=== PATIENT | male | born 1990 | race Caucasian/White ===

== ENCOUNTER 2017-12-03 18:29 | Emergency (ER) | payer OTHER ==
[2017-12-03 19:13] VITALS: BP 139/70
--- NOTE | 2017-12-03 19:27 | UC ---
Complaint Male HPI - HPI Summary HPI Summary: ONSET OF TESTICULAR PAIN LAST NIGHT. SEEMED MORE RIGHT SIDED INITIALLY BUT TODAY IS LEFT SIDED. DENIES ANY CHANGE IN TESTICULAR ORIENTATION OR URINARY SX. NO FEVER OR NAUSEA. HAD EPIDIDYMITIS ABOUT 2 YRS AGO TX WITH ABX. PT DENIES ANY UNPROTECTED SEX AND STATES NO CHANCE OF STD. FEELS BETTER AFTER NSAIDS.OF NOTE PT HAD UNDESCENDED TESTICLE AND ORCHIOPEXY AROUND AGE 2. NOT SURE WHICH SIDE. - History of Current Complaint Stated Complaint: MALE PAIN Time Seen by Provider: 12/03/17 18:48 Hx Obtained From: Patient Onset/Duration: Gradual Onset, Lasting Hours, Still Present Timing: Constant Severity Initially: Moderate Severity Currently: Moderate Pain Intensity: 4 Pain Scale Used: 0-10 Numeric Location: Testicle Character: Sharp Aggravating Factor(s): Palpation Associated Signs And Symptoms: Negative: Diaphoresis, Back Pain, Fever, Hematuria, Dysuria, Nausea, Penile Discharge - Allergies/Home Medications Allergies/Adverse Reactions: Allergies Allergy/AdvReac Type Severity Reaction Status Date / Time No Known Allergies Allergy Verified 12/03/17 19:13 Home Medications: Home Medications NK [No Home Medications Reported] 12/03/17 [History Confirmed 12/03/17] PMH/Surg Hx/FS Hx/Imm Hx Other GI/ History: UNDESCENDED TESTICLE S/P ORCHIOPEXY AROUND AGE 2 - Surgical History Surgical History: Yes Surgery Procedure, Year, and Place: Testicular - Family History Known Family History: Negative: Hypertension - Social History Alcohol Use: Occasionally Substance Use Type: None Smoking Status (MU): Never Smoked Tobacco Review of Systems Constitutional: Negative Skin: Negative Respiratory: Negative Cardiovascular: Negative Gastrointestinal: Negative Genitourinary: Other - LEFT TESTICULAR PAIN All Other Systems Reviewed And Are Negative: Yes Physical Exam Triage Information Reviewed: Yes Appearance: Well-Appearing, No Pain Distress, Well-Nourished Vital Signs: Initial Vital Signs Temp 99.1 F 12/03/17 19:08 Pulse 79 12/03/17 19:08 Resp 20 12/03/17 19:08 BP 139/70 12/03/17 19:08 Pulse Ox 99 12/03/17 19:08 Vital Signs Reviewed: Yes Eyes: Positive: Conjunctiva Clear ENT: Positive: Hearing grossly normal Neck: Positive: Supple Respiratory: Positive: No respiratory distress, No accessory muscle use Cardiovascular: Positive: Pulses Normal Abdomen Description: Positive: Soft Musculoskeletal: Positive: No Edema Neurological: Positive: Alert Psychological: Positive: Age Appropriate Behavior Skin: Negative: rashes UC Physical Exam Vital Signs On Initial Exam: Initial Vitals Temp Pulse Resp BP Pulse Ox 99.1 F 79 20 139/70 99 12/03/17 19:08 12/03/17 19:08 12/03/17 19:08 12/03/17 19:08 12/03/17 19:08 - Genitalia Exam Male Genitalia: Circumcised, Other - LEFT TESTICLE TENDER DIFFUSELY. APPEARS HIGH RIDING AND TRANSVERSE. Complaint Male Course/Dx - Course Course Of Treatment: ON EXAM LEFT TESTICLE SEEMS HIGH RIDING AND TRANSVERSE WITH TENDERNESS. PT WITH H/O ORCHIOPEXY DUE TO UNDESCENDED TESTIS. WILL SEND TO ER FOR FURTHER EVAL. NEED TO R/O TORSION. PT DEFERRED URINE SAMPLE SINCE HE IS GOING TO ER. [place]. PCP IN [place]. - Differential Dx/Diagnosis Provider Diagnoses: LEFT TESTICULAR PAIN Discharge - Discharge Plan Condition: Stable Disposition: OTHER Discharge Disposition Comment: TO [facility] [place] ED BY PRIVATE CAR Patient Education Materials: Testicle Pain (ED) Referrals: No Primary Care Phys,NOPCP [Primary Care Provider] - Additional Instructions: GO DIRECTLY TO THE [facility] [place] ED FROM HERE FOR FURTHER EVALUATION.
== END 2017-12-03 19:16 ==
LOC: UCEAST 18:29
DX: N50.812 Left testicular pain (principal)
CPT/HCPCS: 99202; G0463

== ENCOUNTER 2017-12-03 19:35 | Emergency (ER) | payer OTHER ==
--- NOTE | 2017-12-03 21:13 | RAD ---
INDICATION: Right testicular pain. COMPARISON: There are no prior studies available for comparison. TECHNIQUE: Multiple real-time images of the testicles were obtained including color Doppler images and Doppler tracings. FINDINGS: The testicles are normal in size, shape and echogenicity. The right testicle measured 5.6 x 3.2 x 3.4 cm and the left testicle measured 4.7 x 2.7 x 3.2 cm. No intratesticular mass is seen. There is vascular flow within both testicles. The epididymides are are are normal in size. There is a small 4 x 2 mm right epididymal head cyst. IMPRESSION: 1. NO EVIDENCE FOR TORSION OR EPIDIDYMITIS. 2. SMALL RIGHT EPIDIDYMAL CYST.
[2017-12-03 22:51] VITALS: BP 133/92
[2017-12-03 22:57] LABS: Urine Appearance Clear; Urine Blood Negative (Negative); Urine Color Yellow; Urine Ketones 2+ (Negative); Urine Protein Negative (Negative); Urine Specific Gravity 1.025 (1.010-1.030); Urine Urobilinogen Negative (Negative)
--- NOTE | 2017-12-04 03:57 | ED ---
Jacqui Ramirez Abhishek, scribed for Preston Sam MD on 12/03/17 at 2232 . Complex/Multi-Sys Presentation - HPI Summary HPI Summary: This patient is a 27 year old M presenting to [facility] with a chief complaint of testicular pain since 12/02/17 at 2100. The pain is described as on the left side. The patient rates the pain 5/10 in severity. Symptoms aggravated by sitting. Symptoms alleviated by Aleve. Patient denies urinary pain and hematuria. Pt states he has had abd pain (cyst) in 4 weeks. Pertinent PMHx includes testicular surgery in the left side. - History Of Current Complaint Chief Complaint: EDUrogenitalProblems Time Seen by Provider: 12/03/17 22:22 Hx Obtained From: Patient Onset/Duration: Gradual Onset, Lasting Days - last night 2099 Timing: Constant Severity Currently: None Severity Initially: Moderate Aggravating Factor(s): sitting Alleviating Factor(s): Aleve (medication) Associated Signs And Symptoms: Positive: Other - Left sided testicular pain. Negative hematuria, abd pain and urinary pain - Allergies/Home Medications Allergies/Adverse Reactions: Allergies Allergy/AdvReac Type Severity Reaction Status Date / Time No Known Allergies Allergy Verified 12/03/17 19:47 PMH/Surg Hx/FS Hx/Imm Hx Endocrine/Hematology History: Denies: Hx Diabetes, Hx Thyroid Disease Cardiovascular History: Denies: Hx Hypertension Respiratory History: Denies: Hx Asthma, Hx Chronic Obstructive Pulmonary Disease (COPD) GI History: Denies: Hx Ulcer - Surgical History Surgery Procedure, Year, and Place: Testicular Infectious Disease History: No Infectious Disease History: Denies: Hx Clostridium Difficile, Hx Hepatitis, Hx Human Immunodeficiency Virus (HIV), Hx of Known/Suspected MRSA, Hx Shingles, Hx Tuberculosis, Hx Known/ Suspected VRE, Hx Known/Suspected VRSA, History Other Infectious Disease, Traveled Outside the [place] in Last 30 Days - Family History Known Family History: Negative: Cardiac Disease, Hypertension, Diabetes - Social History Alcohol Use: Occasionally Substance Use Type: Reports: None Smoking Status (MU): Never Smoked Tobacco Review of Systems Constitutional: Negative Eyes: Negative ENT: Negative Cardiovascular: Negative Respiratory: Negative Negative: Abdominal Pain Genitourinary: Other - Left sided testicular pain Negative: hematuria, pain Skin: Negative Neurological: Negative Psychological: Normal All Other Systems Reviewed And Are Negative: Yes Physical Exam - Summary Physical Exam Summary: General: well-appearing, no pain distress Skin: warm, color reflects adequate perfusion, dry Head: normal Eyes: EOMI, JUSTINA ENT: normal Neck: supple, nontender Respiratory: CTA, breath sounds present Cardiovascular: RRR Abdomen: soft, nontender Bowel: present Musculoskeletal: Mildly tender Left cremasteric muscle Neurological: normal, sensory/motor intact, A&O x3 Psychological: affect/mood appropriate Triage Information Reviewed: Yes Vital Signs On Initial Exam: Initial Vitals Temp Pulse Resp BP Pulse Ox 99.5 F 92 18 141/82 98 12/03/17 19:43 12/03/17 19:43 12/03/17 19:43 12/03/17 19:43 12/03/17 19:43 Vital Signs Reviewed: Yes Diagnostics - Vital Signs Vital Signs Temp Pulse Resp BP Pulse Ox 12/03/17 19:43 99.5 F 92 18 141/82 98 - Laboratory Lab Results: Lab Results 12/03/17 Range/Units 22:41 Urine Color Yellow Urine Appearance Clear Urine pH 5.0 (5-9) Ur Specific [place] 1.025 (1.010-1.030) Urine Protein Negative (Negative) Urine Ketones 2+ H (Negative) Urine Blood Negative (Negative) Urine Nitrate Negative (Negative) Urine Bilirubin Negative (Negative) Urine Urobilinogen Negative (Negative) Ur Leukocyte Esterase Negative (Negative) Urine Glucose Negative (Negative) Lab Statement: Any lab studies that have been ordered have been reviewed, and results considered in the medical decision making process. - Ultrasound No standard instances Ultrasound Interpretation Completed By: Radiologist - Testicular US reveals 1. NO EVIDENCE FOR TORSION OR EPIDIDYMITIS. 2. SMALL RIGHT EPIDIDYMAL CYST. ED physician has reviewed this radiology report and agrees. Complex Multi-Symp Course/Dx Course Of Treatment: LEFT CREMASTERIC MUSCLE AND SUPERIOR ASPECT OF TESTICLE MILDLY TENDER TO PALPATION. NO EVIDENCE OF INFECTION. DISCUSSED U/S RESULTS AND TREATMENT WITH PATIENT. F/U PMD; RETURN IF WORSE. - Diagnoses Provider Diagnoses: Scrotal pain Discharge - Discharge Plan Condition: Stable Disposition: HOME Patient Education Materials: Scrotal Pain (ED) Referrals: No Primary Care Phys,NOPCP [Primary Care Provider] - Additional Instructions: FOLLOW UP WITH YOUR DOCTOR. WEAR UNDERWEAR THAT GIVE SUPPORT. TAKE IBUPROFEN OR ALEVE DIRECTED FOR PAIN. RETURN TO THE EMERGENCY DEPARTMENT FOR ANY WORSENING OF YOUR CONDITION; PAIN, SWELLING, YOU FEEL ILL OR QUESTIONS OR CONCERNS. The documentation as recorded by the Jacqui daniel Abhishek accurately reflects the service I personally performed and the decisions made by me, Preston Sam MD.
== END 2017-12-03 22:50 | disposition home or self-care (01) ==
LOC: ED 19:35
DX: N50.82 Scrotal pain (principal); N50.3 Cyst of epididymis
CPT/HCPCS: 76870; 81003; 99282